=== PATIENT | female | born 1955 | race Caucasian/White ===

== ENCOUNTER 2017-02-21 19:13 | Emergency (ER) | payer OTHER ==
[2017-02-21 19:22] VITALS: BP 139/84; PULSE 96; TEMP 98.5; BMI 33.0
--- NOTE | 2017-02-21 19:28 | PDOC ---
History of Present Illness - General History Source: Patient, Spouse, Old Records Exam Limitations: No Limitations - History of Present Illness Initial Comments: 02/21/17 20:11 The patient is a 61 year old female, with a significant past medical history of hypertension and diabetes, who presents to the emergency department with right third finger pain and swelling for the past couple of days but worsening today. The patient states that the third finger of the right hand has been painful for the past couple of days. However, the patient first noticed that the finger had become swollen today so she decided to come to the ED for evaluation. The patient denies fever or chills. The patient denies any injury or trauma. The patients is at the bedside. PAST MEDICAL HISTORY: See HPI. PAST SURGICAL HISTORY: No significant history. FAMILY HISTORY: No pertinent history. SOCIAL HISTORY: Patient lives with family and is employed. MEDICATIONS: Reviewed. ALLERGIES: As per nursing notes. Adult ROS: General: No fevers or chills, no weakness, no weight loss. HEENT: No change in vision. No sore throat. No ear pain. Cardiovascular: No chest pain or shortness of breath. Respiratory: No cough, or wheezing. Gastrointestinal: No nausea, vomiting, diarrhea or constipation, no rectal bleeding. Genitourinary: No dysuria, hematuria, or frequency. Musculoskeletal: No joint or muscle pain or swelling. No neck pain or back pain. Extremities: +Right 3rd finger pain and swelling. Neurologic: No headache, vertigo, dizziness or loss of consciousness. Psychiatric: No depression. Skin: No rashes or easy bruising. Endocrine: No increased thirst or abnormal weight change. Allergic: No skin or latex allergy. All other systems reviewed and normal. Basic Physical Exam: GENERAL: The patient is awake, alert, and fully oriented, in no acute distress. HEAD: Normal with no signs of trauma. EYES: Pupils equal, round and reactive to light, extraocular movements intact, sclera anicteric, conjunctiva clear. EXTREMITIES: Right third finger in the region of the distal phalanx, there is a large pocket of what appears to be a collection of pus underneath. Tenderness to palpation of the distal phalanx. There is some mild erythema and warmth. There is no extension beyond the distal phalanx to the rest of the finger or hand. Normal range of motion. NEUROLOGICAL: Normal speech, normal gait. PSYCH: Normal mood, normal affect. SKIN: Warm, dry, normal turgor, no rashes or lesions noted. <Carlie Gillette - Last Filed: 02/21/17 20:10> - General History Source: Patient Exam Limitations: No Limitations - History of Present Illness Initial Comments: 02/21/17 20:14 A portion of this note was documented by scribe services under my direction. I have reviewed the details of the note, within reason, and agree with the documentation. The case summary and management plan written by me. Procedure note Incision and drainage of paronychia subungual infection. Finger was anesthetized via digital block with approximately 5 mL of the lidocaine no epinephrine. Paronychia for was incised without any relief of pus from underneath the nailbed. Nailbed was trephinated with a moderate amount of pus through the whole of trephination. I then incised the nail away from the nailbed where the pus was and the removed the rest of the pus from under the nail and cleaned the infection. Bacitracin was applied to the infected area and a Band-Aid wa applied over the bacitracin. Assessment and plan: This is a 61-year-old female with history of uvz-oenkwgy-erttzhuys diabetes who comes in with a large subungual pus collection an infection of her nailbed and paronychia O fold of the nail. Part of the nail was removed to drain the collection and patient was started on Bactrim. Patient will follow-up with her primary care doctor. <Roberta Diaz I - Last Filed: 02/21/17 20:18> - General Chief Complaint: Pain Stated Complaint: RT 3RD FINGER PAIN, SWELLING Time Seen by Provider: 02/21/17 19:18 Past History <Carlie Gillette - Last Filed: 02/21/17 20:10> - Past Medical History Anemia: No Asthma: No Cancer: No Cardiac Disorders: No CVA: No COPD: No CHF: No Dementia: No Diabetes: Yes GI Disorders: Yes (H/O ANAL FISSURE, HIATAL HERNIA) Disorders: No HTN: Yes Hypercholesterolemia: No Kidney Stones: Yes Liver Disease: No Suicide Attempt (Hx): No Seizures: No Thyroid Disease: No - Surgical History Abdominal Surgery: No Appendectomy: No Cardiac Surgery: No Cholecystectomy: No Lung Surgery: No Neurologic Surgery: No Orthopedic Surgery: Yes (TORN RIGHT MENISCUS) - Immunization History Immunization Up to Date: Yes - Psycho/Social/Smoking Cessation Hx Anxiety: No Suicidal Ideation: No Smoking History: Never smoked Have you smoked in the past 12 months: No Information on smoking cessation initiated: No Hx Alcohol Use: No Drug/Substance Use Hx: No Substance Use Type: None Hx Substance Use Treatment: No <Roberta Diaz I - Last Filed: 02/21/17 20:18> - Past Medical History Allergies/Adverse Reactions: Allergies Allergy/AdvReac Type Severity Reaction Status Date / Time No Known Allergies Allergy Verified 02/21/17 19:14 Home Medications: Ambulatory Orders Losartan Potassium [Cozaar] 100 mg PO DAILY 02/08/13 Omeprazole [Prilosec (RX)] 40 mg PO DAILY 10/16/14 Metoprolol Succinate [Toprol XL -] 25 mg PO DAILY 01/21/15 Glipizide/Metformin HCl [Glipizide-Metformin 5-500 mg] 1 each PO DAILY 12/05/15 Ibuprofen [Motrin -] 600 mg PO TID #21 tablet 12/06/15 Sulfamethoxazole/Trimethoprim [Bactrim DS -] 1 tab PO BID #14 tablet 02/21/17 *Physical Exam - Vital Signs Last Vital Signs Temp Pulse Resp BP Pulse Ox 98.5 F 96 H 18 139/84 100 02/21/17 19:15 02/21/17 19:15 02/21/17 19:15 02/21/17 19:15 02/21/17 19:15 <Carlie Gillette - Last Filed: 02/21/17 20:10> - Vital Signs Last Vital Signs Temp Pulse Resp BP Pulse Ox 98.5 F 96 H 18 139/84 100 02/21/17 19:15 02/21/17 19:15 02/21/17 19:15 02/21/17 19:15 02/21/17 19:15 <Roberta Diaz I - Last Filed: 02/21/17 20:18> *DC/Admit/Observation/Transfer - Attestations Scribe Attestion: 02/21/17 19:35 Documentation prepared by Carlie Gillette, acting as medical reimbursement specialist for Roberta Diaz MD. <Carlie Gillette - Last Filed: 02/21/17 20:10> - Discharge Dispostion Admit: No <Roberta Diaz I - Last Filed: 02/21/17 20:18> Diagnosis at time of Disposition: Finger infection - Discharge Dispostion Disposition: HOME Condition at time of disposition: Stable - Prescriptions Prescriptions: Sulfamethoxazole/Trimethoprim [Bactrim DS -] 1 tab PO BID #14 tablet - Referrals Referrals: Ilda Toussaint MD [Primary Care Provider] - - Patient Instructions Additional Instructions: Reapply bacitracin to the area once a day and a Band-Aid. Keep it protected with a Band-Aid until the nailbed has dried sufficiently that is no longer sensitive. Return to the emergency department immediately with ANY new, persistent or worsening symptoms. Continue any medications as previously prescribed by your physician. You should follow up with your primary doctor as soon as possible regarding today's emergency department visit. . Please make sure your doctor reviews the results of your emergency evaluation. Thank you for coming to the Emergency Department today for your care. It was a pleasure to see you today. Please note that your evaluation is INCOMPLETE until you follow-up with your doctor.
[2017-02-21] MEDS ORDERED: SULFAMETHOXAZOLE/TRIMETHOPRIM 800MG/160MG D.S. TABLET PO ONE (20:08)
[2017-02-21] MEDS ORDERED: SULFAMETHOXAZOLE/TRIMETHOPRIM 800MG/160MG D.S. TABLET ONE (20:21)
== END 2017-02-21 20:26 | disposition home or self-care (01) ==
LOC: FER 19:13
DX: L08.9 Local infection of the skin and subcutaneous tissue, unspecified (principal); I10 Essential (primary) hypertension; E11.9 Type 2 diabetes mellitus without complications
CPT/HCPCS: 87070; 87077; 87186; 87205; 99282-25

== ENCOUNTER 2017-12-28 07:23 | Emergency (ER) | payer OTHER ==
[2017-12-28 07:47] VITALS: TEMP 98.6; BMI 31.9
--- NOTE | 2017-12-28 09:09 | PDOC ---
History of Present Illness <Phil Nielson - Last Filed: 12/28/17 09:09> <Sangita Gonzáles - Last Filed: 12/28/17 09:37> - General Chief Complaint: Lightheaded Stated Complaint: DIZZY Time Seen by Provider: 12/28/17 09:09 Past History - Past Medical History Anemia: No Asthma: No Cancer: No Cardiac Disorders: No CVA: No COPD: No CHF: No Dementia: No Diabetes: Yes GI Disorders: Yes (H/O ANAL FISSURE, HIATAL HERNIA) Disorders: No HTN: Yes Hypercholesterolemia: No Kidney Stones: Yes Liver Disease: No Seizures: No Thyroid Disease: No - Surgical History Abdominal Surgery: No Appendectomy: No Cardiac Surgery: No Cholecystectomy: No Lung Surgery: No Neurologic Surgery: No Orthopedic Surgery: Yes (TORN RIGHT MENISCUS) - Immunization History Immunization Up to Date: Yes - Suicide/Smoking/Psychosocial Hx Smoking History: Never smoked Have you smoked in the past 12 months: No Hx Alcohol Use: No Drug/Substance Use Hx: No Substance Use Type: None Hx Substance Use Treatment: No <Phil Nielson - Last Filed: 12/28/17 09:09> <Sangita Gonzáles - Last Filed: 12/28/17 09:37> - Past Medical History Allergies/Adverse Reactions: Allergies Allergy/AdvReac Type Severity Reaction Status Date / Time No Known Allergies Allergy Verified 12/28/17 07:41 Home Medications: Ambulatory Orders Losartan Potassium [Cozaar] 100 mg PO DAILY 02/08/13 Metoprolol Succinate [Toprol XL -] 25 mg PO DAILY 01/21/15 Glipizide/Metformin HCl [Glipizide-Metformin 5-500 mg] 1 each PO BID 12/05/15 *Physical Exam - Vital Signs Last Vital Signs Temp Pulse Resp BP Pulse Ox 98.6 F 102 H 20 119/98 97 12/28/17 07:38 12/28/17 07:38 12/28/17 07:38 12/28/17 07:38 12/28/17 07:38 <Phil Nielson - Last Filed: 12/28/17 09:09> - Vital Signs Last Vital Signs Temp Pulse Resp BP Pulse Ox 98.6 F 102 H 20 119/98 97 12/28/17 07:38 12/28/17 07:38 12/28/17 07:38 12/28/17 07:38 12/28/17 07:38 <Sangita Gonzáles - Last Filed: 12/28/17 09:37> Medical Decision Making - Medical Decision Making 12/28/17 09:37 <Sangita Gonzáles - Last Filed: 12/28/17 09:37> *DC/Admit/Observation/Transfer <Phil Nielson - Last Filed: 12/28/17 09:09> <Sangita Gonzáles - Last Filed: 12/28/17 09:37> - Referrals Referrals: Ilda Toussaint MD [Primary Care Provider] - - Patient Instructions - Post Discharge Activity
--- NOTE | 2017-12-28 09:38 | PDOC ---
History of Present Illness - General History Source: Patient Exam Limitations: No Limitations - History of Present Illness Initial Comments: 12/28/17 10:39 The patient is a 62 year old female, with a significant past medical history of HTN and DM, who presents to the emergency department with diarrhea, nausea, and lightheadedness for about 6 days. The patient reports having multiple episodes of loose stool, since tuesday, with the onset of nausea and malaise. She notes having intermittent chills, subjective fevers and body aches in addition to her diarrhea. She notes her lightheadedness, and weakness has been getting progressively worse since their original onset. History of sepsis about 12 years ago. She denies recent headache, focal weakness or numbness. She denies recent vomit, or constipation. She denies recent dysuria, frequency, urgency or hematuria. She denies recent chest pain or shortness of breath. No recent travel or antibiotics. Allergies: NKA Past surgical history: None reported. Social history: Nonsmoker. Denies EtOH use and recreational drug use. Primary Care Physician: <Eber Peterson - Last Filed: 12/28/17 10:39> <Sangita Gonzáles - Last Filed: 12/28/17 13:46> - General Chief Complaint: Lightheaded Stated Complaint: DIZZY Time Seen by Provider: 12/28/17 09:09 Past History <Eber Peterson - Last Filed: 12/28/17 10:39> - Past Medical History Anemia: No Asthma: No Cancer: No Cardiac Disorders: No CVA: No COPD: No CHF: No Dementia: No Diabetes: Yes GI Disorders: Yes (H/O ANAL FISSURE, HIATAL HERNIA) Disorders: No HTN: Yes Hypercholesterolemia: No Kidney Stones: Yes Liver Disease: No Seizures: No Thyroid Disease: No - Surgical History Abdominal Surgery: No Appendectomy: No Cardiac Surgery: No Cholecystectomy: No Lung Surgery: No Neurologic Surgery: No Orthopedic Surgery: Yes (TORN RIGHT MENISCUS) - Immunization History Immunization Up to Date: Yes - Suicide/Smoking/Psychosocial Hx Smoking History: Never smoked Have you smoked in the past 12 months: No Hx Alcohol Use: No Drug/Substance Use Hx: No Substance Use Type: None Hx Substance Use Treatment: No <Sangita Gonzáles - Last Filed: 12/28/17 13:46> - Past Medical History Allergies/Adverse Reactions: Allergies Allergy/AdvReac Type Severity Reaction Status Date / Time No Known Allergies Allergy Verified 12/28/17 07:41 Home Medications: Ambulatory Orders Losartan Potassium [Cozaar] 100 mg PO DAILY 02/08/13 Metoprolol Succinate [Toprol XL -] 25 mg PO DAILY 01/21/15 Glipizide/Metformin HCl [Glipizide-Metformin 5-500 mg] 1 each PO BID 12/05/15 Review of Systems - Review of Systems Comments:: 12/28/17 10:40 GENERAL/CONSTITUTIONAL: No fever +chills. +weakness. HEAD, EYES, EARS, NOSE AND THROAT: No change in vision. No ear pain or discharge. No sore throat. GASTROINTESTINAL: +diarrhea and nausea No, vomiting, or constipation. GENITOURINARY: No dysuria, frequency, or change in urination. CARDIOVASCULAR: No chest pain or shortness of breath. RESPIRATORY: No cough, wheezing, or hemoptysis. MUSCULOSKELETAL: No joint or muscle swelling or pain. No neck or back pain. SKIN: No rash NEUROLOGIC :+lightheadedness No headache, vertigo, loss of consciousness, or change in strength/sensation. ENDOCRINE: No increased thirst. No abnormal weight change. HEMATOLOGIC/LYMPHATIC: No anemia, easy bleeding, or history of blood clots. ALLERGIC/IMMUNOLOGIC: No hives or skin allergy. <Eber Peterson - Last Filed: 12/28/17 10:39> *Physical Exam - Vital Signs Last Vital Signs Temp Pulse Resp BP Pulse Ox 98.6 F 102 H 20 119/98 97 12/28/17 07:38 12/28/17 07:38 12/28/17 07:38 12/28/17 07:38 12/28/17 07:38 - Physical Exam Comments: 12/28/17 10:40 GENERAL: Awake, alert, and fully oriented, in no acute distress HEAD: No signs of trauma EYES: PERRLA, EOMI, sclera anicteric, conjunctiva clear ENT: Auricles normal inspection, hearing grossly normal, nares patent, oropharynx clear without exudates. Moist mucosa NECK: Normal ROM, supple, no lymphadenopathy, JVD, or masses LUNGS: Breath sounds equal, clear to auscultation bilaterally. No wheezes, and no crackles HEART: Regular rate and rhythm, normal S1 and S2, no murmurs, rubs or gallops ABDOMEN: Soft, nontender, normoactive bowel sounds. No guarding, no rebound. No masses EXTREMITIES: Normal range of motion, no edema. No clubbing or cyanosis. No cords , erythema, or tenderness BACK: No midline spinal tenderness in cervical/thoracic/lumbar region NEUROLOGICAL: Normal speech, cranial nerves intact, negative pronator drift, 5/ 5 strength in all 4 extremities, normal sensation to light touch in all 4 extremities, normal cerebellar exam, normal gait, normal reflexes and tone SKIN: Warm, Dry, normal turgor, no rashes or lesions noted. <Eber Peterson - Last Filed: 12/28/17 10:39> - Vital Signs Last Vital Signs Temp Pulse Resp BP Pulse Ox 98.6 F 102 H 20 119/98 97 12/28/17 07:38 12/28/17 07:38 12/28/17 07:38 12/28/17 07:38 12/28/17 07:38 <Sangita Gonzáles - Last Filed: 12/28/17 13:46> ED Treatment Course - LABORATORY CBC & Chemistry Diagram: 12/28/17 10:30 12/28/17 10:30 <Eber Peterson - Last Filed: 12/28/17 10:39> - LABORATORY CBC & Chemistry Diagram: 12/28/17 10:30 12/28/17 10:30 <Sangita Gonzáles - Last Filed: 12/28/17 13:46> Medical Decision Making - Medical Decision Making 12/28/17 09:35 62-year-old female with a history of [id number] diabetes and hypertension presents emergency Department with 6 days of lightheadedness in the setting of body aches, nausea and multiple episodes of nonbloody diarrhea. Vitals remarkable for mild tachycardia to 102. Exam within normal limits. Differential includes but not limited to dehydration versus ACS versus electrolyte abnormality. Labs, chest x-ray, urinalysis, and a liter fluids have been ordered, will reassess. Laboratory Results - last 24 hr 12/28/17 12/28/17 12/28/17 10:29 10:30 10:30 WBC 17.9 H D RBC 4.36 Hgb 11.5 D Hct 35.6 D MCV 81.7 MCH 26.4 MCHC 32.3 RDW 13.4 Plt Count 403 D MPV 7.1 L Neutrophils % 75.5 Lymphocytes % 17.8 D Monocytes % 5.6 Eosinophils % 0.3 Basophils % 0.8 Sodium 132 L Potassium 4.8 Chloride 99 Carbon Dioxide 23 Anion Gap 10 BUN 26 H Creatinine 1.3 H Creat Clearance w eGFR 41.24 Random Glucose 276 H Lactic Acid Calcium 8.5 Magnesium 1.8 Total Bilirubin 0.8 D AST 8 L ALT 9 L Alkaline Phosphatase 93 Troponin I < 0.02 Total Protein 7.0 Albumin 3.0 L Urine Color Lt. yellow Urine Appearance Clear Urine pH 5.5 Ur Specific Gilbert 1.020 Urine Protein 1+ H Urine Glucose (UA) 1+ H Urine Ketones Trace H Urine Blood 1+ H Urine Nitrite Negative Urine Bilirubin 1+ H Urine Urobilinogen 0.2 Ur Leukocyte Esterase 2+ H 12/28/17 10:30 WBC RBC Hgb Hct MCV MCH MCHC RDW Plt Count MPV Neutrophils % Lymphocytes % Monocytes % Eosinophils % Basophils % Sodium Potassium Chloride Carbon Dioxide Anion Gap BUN Creatinine Creat Clearance w eGFR Random Glucose Lactic Acid 1.9 Calcium Magnesium Total Bilirubin AST ALT Alkaline Phosphatase Troponin I Total Protein Albumin Urine Color Urine Appearance Urine pH Ur Specific Gilbert Urine Protein Urine Glucose (UA) Urine Ketones Urine Blood Urine Nitrite Urine Bilirubin Urine Urobilinogen Ur Leukocyte Esterase 12/28/17 11:31 Pt with leukocytosis to 18, UA concerning for UTI. Pt reports urine was malodorous this morning. 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 12/28/17 13:43 Patient reports dizziness has improved after fluids. Given first dose of Bactrim in the ED for UTI. Patient clinically stable and requests discharge home. Has an appointment with Dr. Hernandez scheduled for Tuesday. I discussed the physical exam findings, ancillary test results and final diagnoses with the patient. I answered all of the patient's questions. The patient was satisfied with the care received and felt comfortable with the discharge plan and treatment plan. The patient will call their primary care physician within 24 hours to arrange follow-up and will return to the Emergency Department with any new, persistent or worsening symptoms. <Nassef,Yomna - Last Filed: 12/28/17 13:46> *DC/Admit/Observation/Transfer - Attestations Scribe Attestion: 12/28/17 10:40 Documentation prepared by Eber Peterson, acting as medical record administrator for Sangita Gonzáles MD. <Eber Peterson - Last Filed: 12/28/17 10:39> - Discharge Dispostion Admit: No - Attestations Physician Attestion: 12/28/17 13:45 I, Dr. Sangita Gonzáles MD, attest that this document has been prepared under my direction and personally reviewed by me in its entirety. I further attest, that it accurately reflects all work, treatment, procedures and medical decision -making performed by me. <Sangita Gonzáles - Last Filed: 12/28/17 13:46> Diagnosis at time of Disposition: UTI (urinary tract infection) - Discharge Dispostion Disposition: HOME Condition at time of disposition: Stable - Referrals Referrals: Ilda Toussaint MD [Primary Care Provider] - - Patient Instructions Printed Discharge Instructions: DI for Urinary Tract Infection (UTI) Additional Instructions: Follow-up with your primary doctor as scheduled this Tuesday. Take your antibiotics as prescribed. Continue to drink plenty of fluids and stay hydrated. It was a pleasure to take care of you in the emergency department today. Return to emergency department if you have any new, worsening or concerning symptoms. - Post Discharge Activity Forms/Work/School Notes: Back to Work
[2017-12-28 10:48] LABS: BASO % 0.8 % (0-2.0); EOS % 0.3 % (0-4.5); HEMATOCRIT 35.6 % (32.4-45.2); HEMOGLOBIN 11.5 GM/dL (10.7-15.3); LYMPH % 17.8 % (8-40); MCH 26.4 pg (25.7-33.7); MCHC 32.3 g/dl (32.0-36.0); MEAN CELL VOLUME 81.7 fl (80-96); MEAN PLT VOLUME 7.1 fl (7.5-11.1); MONO % 5.6 % (3.8-10.2); NEUT % 75.5 % (42.8-82.8); PLATELET COUNT 403 K/MM3 (134-434); RBC 4.36 M/mm3 (3.60-5.2); RDW 13.4 % (11.6-15.6); WHITE BLOOD COUNT 17.9 K/mm3 (4.0-10.0)
[2017-12-28 11:16] LABS: ANION GAP 10 (8-16); BILIRUBIN,TOTAL 0.8 mg/dL (0.2-1.0); BLOOD UREA NITROGEN 26 mg/dL (7-18); CALCIUM 8.5 mg/dL (8.5-10.1); CHLORIDE 99 mmol/L (98-107); CO2 23 mmol/L (21-32); CREATININE 1.3 mg/dL (0.55-1.02); GLUCOSE,RANDOM 276 mg/dL (74-106); MAGNESIUM 1.8 mg/dL (1.8-2.4); POTASSIUM 4.8 mmol/L (3.5-5.1); SGOT/AST 8 U/L (15-37); SGPT/ALT 9 U/L (12-78); SODIUM 132 mmol/L (136-145)
[2017-12-28 11:16] LABS: PH,URINE 5.5 (5.0-8.0); URINE APPEARANCE CLEAR; URINE BILIRUBIN 1+ (NEGATIVE); URINE BLOOD 1+ (NEGATIVE); URINE COLOR LT. YELLOW; URINE GLUCOSE (UA) 1+ (NEGATIVE); URINE KETONE TRACE (NEGATIVE); URINE NITRITE NEGATIVE (NEGATIVE); URINE UROBILINOGEN 0.2 mg/dL (0.2-1.0)
[2017-12-28 11:20] LABS: ALK PHOS 93 U/L (45-117)
[2017-12-28 11:26] LABS: URINE LEUK ESTERASE 2+ (NEGATIVE); URINE PROTEIN 1+ (NEGATIVE)
[2017-12-28] MEDS ORDERED: SODIUM CHLORIDE 0.9% 500 ML INFUS.BAG IV ONE (11:28)
[2017-12-28 11:58] LABS: URINE BACTERIA MANY /hpf (NONE SEEN); URINE HYALINE CAST 1 /lpf
[2017-12-28 11:59] LABS: EPI CELLS MODERATE /HPF (FEW)
[2017-12-28] MEDS ORDERED: SULFAMETHOXAZOLE/TRIMETHOPRIM 800MG/160MG D.S. TABLET PO ONE (12:15)
[2017-12-28] MEDS ORDERED: SULFAMETHOXAZOLE/TRIMETHOPRIM 800MG/160MG D.S. TABLET ONE (12:18)
[2017-12-28 14:01] VITALS: BP 108/68; PULSE 88
--- NOTE | 2017-12-28 16:24 | EKG ---
Test Reason : Blood Pressure : / mmHG Vent. Rate : 091 BPM Atrial Rate : 091 BPM P-R Int : 168 ms QRS Dur : 084 ms QT Int : 376 ms P-R-T Axes : 025 -25 011 degrees QTc Int : 462 ms NORMAL SINUS RHYTHM POSSIBLE LEFT ATRIAL ENLARGEMENT INFERIOR INFARCT (CITED ON OR BEFORE 20-MAY-2010) ANTEROLATERAL INFARCT , AGE UNDETERMINED ABNORMAL ECG WHEN COMPARED WITH ECG OF 11-FEB-2014 13:40, QRS AXIS SHIFTED LEFT ANTEROLATERAL INFARCT IS NOW PRESENT Confirmed by DANILO MCKEON, FARIHA ([id number]) on 12/28/2017 4:24:14 PM Referred By: Confirmed By:FARIHA CARRASCO MD
== END 2017-12-28 14:01 | disposition home or self-care (01) ==
LOC: JER 07:23
DX: N39.0 Urinary tract infection, site not specified (principal); B96.89 Other specified bacterial agents as the cause of diseases classified elsewhere; I10 Essential (primary) hypertension; E11.9 Type 2 diabetes mellitus without complications; Z79.84 Long term (current) use of oral hypoglycemic drugs
CPT/HCPCS: 36415; 71045-TC-FY; 80053; 81003; 81015; 83605; 83735; 84484; 85025; 87086; 87186; 93005; 93010; 99284-25

== ENCOUNTER 2020-07-11 16:01 | Emergency (ER) | payer OTHER ==
[2020-07-11 16:16] VITALS: BP 152/86; PULSE 90; TEMP 98; BMI 30.7
--- NOTE | 2020-07-11 16:49 | PDOC ---
History of Present Illness - General Chief Complaint: Wound Stated Complaint: RIGHT GREAT TOE DARK SPOT Time Seen by Provider: 07/11/20 16:32 History Source: Patient Exam Limitations: No Limitations - History of Present Illness Initial Comments: 07/11/20 16:41 65 yo female sig med hx of HTN and DM presents to the ED immediately after noticing her left great toe tip was dark. pt states she checks her foot 3 times per week due to diabetic neuropathy and concerns for wounds. Pt states she last checked 2 days ago and the black spot was not there. Pt unsure if she stubbed her toe recently due to neuropathy and denies infections or gangrene digits in the past. Pt denies drainage, redness, warmth, pain or swelling from the toe. Denies F/C/N/V, abdominal pain, CP, SOB. Pt reports calling her bpo specialist who is not in clinic today or this weekend. Past History - Medical History Allergies/Adverse Reactions: Allergies Allergy/AdvReac Type Severity Reaction Status Date / Time No Known Allergies Allergy Verified 07/11/20 16:22 Home Medications: Ambulatory Orders Losartan Potassium [Cozaar] 100 mg PO DAILY 02/08/13 Metoprolol Succinate [Toprol XL -] 25 mg PO DAILY 01/21/15 Glipizide/Metformin HCl [Glipizide-Metformin 5-500 mg] 1 each PO BID 12/05/15 Anemia: No Asthma: No Cancer: No Cardiac Disorders: No CVA: No COPD: No CHF: No Dementia: No Diabetes: Yes GI Disorders: Yes (H/O ANAL FISSURE, HIATAL HERNIA) Disorders: No HTN: Yes Hypercholesterolemia: No Kidney Stones: Yes Liver Disease: No Seizures: No Thyroid Disease: No - Surgical History Abdominal Surgery: No Appendectomy: No Cardiac Surgery: No Cholecystectomy: No Lung Surgery: No Neurologic Surgery: No Orthopedic Surgery: Yes (TORN RIGHT MENISCUS) - Immunization History Immunization Up to Date: Yes - Psycho-Social/Smoking History Smoking History: Never smoked Have you smoked in the past 12 months: No Information on smoking cessation initiated: No - Substance Abuse Hx (Audit-C & DAST Scrn) How often the patient has a drink containing alcohol: Never Score: In Men: 4 or > Positive; In Women: 3 or > Positive: 0 Screen Result (Pos requires Nsg. Audit-10AR): Negative In the last yr the pt used illegal drug/Rx for NonMed reason: No Score: Yes response is considered Positive: 0 Screen Result (Positive result requires Nsg. DAST-10): Negative Review of Systems - Review of Systems Constitutional: Yes: Symptoms Reported HEENTM: Yes: Symptoms Reported Respiratory: Yes: Symptoms reported Cardiac (ROS): Yes: Symptoms Reported ABD/GI: Yes: Symptoms Reported : Yes: Symptoms Reported Musculoskeletal: Yes: Symptoms Reported Integumentary: Yes: Symptoms Reported Neurological: Yes: Symptoms reported *Physical Exam - Vital Signs Last Vital Signs Temp Pulse Resp BP Pulse Ox 98 F 90 18 152/86 98 07/11/20 16:03 07/11/20 16:03 07/11/20 16:03 07/11/20 16:03 07/11/20 16:03 - Physical Exam General Appearance: Yes: Nourished, Appropriately Dressed. No: Apparent Distress HEENT: positive: EOMI Respiratory/Chest: positive: Lungs Clear, Normal Breath Sounds Cardiovascular: positive: Regular Rhythm, Regular Rate, S1, S2. negative: Edema, JVD, Murmur Vascular Pulses: Dorsalis-Pedis (R): 4+, Doralis-Pedis (L): 4+ Gastrointestinal/Abdominal: positive: Flat, Soft. negative: Pulsatile Mass, Protuberent, Guarding, Rebound, Tenderness Extremity: positive: Normal Capillary Refill, Normal Range of Motion, Other (dark left great toe without pain, erythema, warmth, drainage). negative: Tender, Delayed Capillary Refill, Pedal Edema, Swelling, Calf Tenderness, Erythema, Inflammation Neurologic: positive: Fully Oriented, Alert, Normal Response, Motor Strength 5/5 Medical Decision Making - Medical Decision Making 07/11/20 16:52 65 yo female sig med hx of HTN and DM presents to the ED immediately after noticing her left great toe tip was dark. pt states she checks her foot 3 times per week due to diabetic neuropathy and concerns for wounds. Pt states she last checked 2 days ago and the black spot was not there. Pt unsure if she stubbed her toe recently due to neuropathy and denies infections or gangrene digits in the past. Pt denies drainage, redness, warmth, pain or swelling from the toe. Denies F/C/N/V, abdominal pain, CP, SOB. Pt reports calling her bpo specialist who is not in clinic today or this weekend. Vitals WNL See PE (no signs of active infection or PAD/decreased blood flow) Pt requires outpatient Podiatry F/U and PCP F/U Precautions for reducing pressure related wounds given to patient Discharge - Discharge Information Problems reviewed: Yes Clinical Impression/Diagnosis: Black toe Condition: Stable Disposition: HOME - Admission No - Follow up/Referral Referrals: Naeem Baez DPM [Staff Physician] - Luis Lacy MD [Staff Physician] - - Patient Discharge Instructions Patient Printed Discharge Instructions: DI for Wound Infection Additional Instructions: Please follow up with your Telephone Solicitor Supervisor or call one of the other Podiatrists for an appointment if you can not get a a hold of yours. Take over the counter pain medication such as tylenol or motrin as needed for pain if you start to develop pain. Return to the ER for new or concerning symptoms such as fevers, warmth, pain or drainage from your toe or surrounding foot. Use the loose dressing at night as shown to you in the ED and wear loose fitting shoes/sandals to prevent further pressure injuries Thank you - Post Discharge Activity
--- NOTE | 2020-07-11 17:12 | PDOC ---
Attending Attestation - Resident Resident Name: JustenJuliano - ED Attending Attestation I have performed the following: I have examined & evaluated the patient, The case was reviewed & discussed with the resident, I agree w/resident's findings & plan, Exceptions are as noted - HPI HPI: 07/11/20 17:07 [id number] with HTN and DM with neuropathy who p/w small area of dark discoloration on left great toe. She cannot trace it back to any trauma or injury. States she checks her feet frequently and is sure this just happened. She follows with a milk route supervisor and will be able to follow up with them after the weekend. She denies any redness, warmth, drainage, pain swelling, streaking redness, f/c/n/v/d/c, abdominal pain, CP, SOB. - Physicial Exam PE: 07/11/20 17:10 GENERAL: well-appearing, pleasant, gregarious, A/Ox4, no distress, answers questions appropriately HEENT: PERRLA, EOMI, moist mucous membranes NECK/BACK: no midline ttp, no spinal step-off or deformity, no hematoma, full ROM, neck supple CARDIOVASCULAR: regular rate/rhythm, no MGR, strong peripheral pulses, capillary refill <2 seconds, extremities wwp, no edema LUNGS/RESPIRATORY: no respiratory distress, CTAB GI/ABDOMEN: symmetric [id number], normoactive BS, soft, no ttp, no midline pulsatile masses : no CVA tenderness MSK/EXTREMITIES: left 1st toe with 1x1cm area of dark discoloration with overlying slightly dry skin, no erythema, warmth, induration, fluctuance, drainage, or open lesion, no tenderness, no streaking erythema, no cracks on skin on foot, no other discoloration, no lipodermatosclerosis, DP pulses 2+ and equal bilaterally, strength intact flexion/extension, 3/5 sensation diffusely on all toes, otherwise MSK exam with no muscle atrophy, no acute deformity SKIN: warm and dry, no pallor, no jaundice, no rash, no pathologic-appearing bruising, no skin breakdown, no cuts, no lesions NEUROLOGICAL: GCS 15, CN II-XII grossly intact, 5/5 strength proximally and distally, no facial droop - Medical Decision Making 07/20/20 23:51 65YOF with h/o DM p/w toe tip discoloration which she states is new over the past day, atraumatic per her recollection. Initial Vital Signs Temp Pulse Resp BP Pulse Ox 98 F 90 18 152/86 98 07/11/20 16:03 07/11/20 16:03 07/11/20 16:03 07/11/20 16:03 07/11/20 16:03 Most likely blister, minor trauma which was not remembered by the patient as she has sensory deficit. Less likely ischemic lesion as there are no other signs of peripheral vascular disease on any other digit on either LE, DP and PT pulses intact. No systemic symptoms. Patient has a milk route supervisor and will be able to f/u with them. No indication for w/u at this time as there are no concerning emergent features to this lesion. Dispo per resident note, return precautions discussed. Discharge - Discharge Information Problems reviewed: Yes Clinical Impression/Diagnosis: Black toe Condition: Stable Disposition: HOME - Admission No - Follow up/Referral Referrals: Luis Lacy MD [Staff Physician] - Naeem Baez DPM [Staff Physician] - - Patient Discharge Instructions Patient Printed Discharge Instructions: DI for Wound Infection Additional Instructions: Please follow up with your Diamond Sawer or call one of the other Podiatrists for an appointment if you can not get a a hold of yours. Take over the counter pain medication such as tylenol or motrin as needed for pain if you start to develop pain. Return to the ER for new or concerning symptoms such as fevers, warmth, pain or drainage from your toe or surrounding foot. Use the loose dressing at night as shown to you in the ED and wear loose fitting shoes/sandals to prevent further pressure injuries Thank you - Post Discharge Activity
== END 2020-07-11 17:12 | disposition home or self-care (01) ==
LOC: FER 16:01
DX: L81.9 Disorder of pigmentation, unspecified (principal)
CPT/HCPCS: 99282-25

== ENCOUNTER 2021-09-23 23:05 | Inpatient (IN) | payer BC, OTHER ==
[2021-09-23 23:18] VITALS: BMI 30.7
[2021-09-23] MEDS ORDERED: ONDANSETRON 4 MG/2 ML VIAL IVPUSH ONE (23:32)
[2021-09-23] MEDS ORDERED: LACTATED RINGERS SOLUTION 1000 ML INFUS.BAG IV ONE (23:32)
[2021-09-23] MEDS ORDERED: morphine CARPU-JECT 2 MG/1 ML DISP.SYRIN IVPUSH ONE (23:32)
[2021-09-23] MEDS ORDERED: FAMOTIDINE 20 MG/50 ML IVPB 20 MG/50 ML MG IVPB ONE (23:32)
[2021-09-24] MEDS ORDERED: ONDANSETRON 4 MG/2 ML VIAL ONE (00:07)
[2021-09-24] MEDS ORDERED: morphine SULFATE 4 MG/ML VIAL ONE (00:07)
[2021-09-24 00:32] LABS: MCH 27.8 pg (25.7-33.7); MCHC 32.5 g/dl (32.0-36.0); MEAN CELL VOLUME 85.6 fl (80-96); MEAN PLT VOLUME 7.1 fl (7.5-11.1); PLATELET COUNT 335 10^3/uL (134-434); RBC 4.32 M/mm3 (3.60-5.2); RDW 13.6 % (11.6-15.6); WHITE BLOOD COUNT 16.9 K/mm3 (4.0-10.0)
[2021-09-24 00:52] LABS: CHLORIDE 105 mmol/L (98-107); SODIUM 136 mmol/L (136-145)
[2021-09-24 00:54] LABS: ALBUMIN 3.4 g/dl (3.4-5.0); ANION GAP 13 MMOL/L (8-16); BLOOD UREA NITROGEN 66.4 mg/dL (7-18); CALCIUM 8.6 mg/dL (8.5-10.1); CO2 17 mmol/L (21-32); GLUCOSE,RANDOM 274 mg/dL (74-106)
[2021-09-24 00:57] LABS: CREATININE 1.6 mg/dL (0.55-1.3); SGOT/AST 31 U/L (15-37); SGPT/ALT 23 U/L (13-61)
[2021-09-24 00:59] LABS: BILIRUBIN,TOTAL 0.6 mg/dL (0.2-1); TOT PROT 7.8 g/dl (6.4-8.2)
[2021-09-24 01:00] LABS: ALK PHOS 80 U/L (45-117)
[2021-09-24] MEDS ORDERED: LACTATED RINGERS SOLUTION 1000 ML INFUS.BAG IV ONE (01:16)
[2021-09-24] MEDS ORDERED: MAGNESIUM SULF 50% (8.12 MEQ/2 ML-1 GM VIAL) IVPB ONE (02:07)
[2021-09-24] MEDS ORDERED: ACETAMINOPHEN INJECTION 100 ML IVPB ONE ×2 (02:57→09:19)
[2021-09-24] MEDS ORDERED: LINEZOLID 600 MG PREMIX BAG 600 MG in PREMIX 300 IVPB SCH (03:00)
[2021-09-24] MEDS ORDERED: ACETAMINOPHEN 1000 MG/100 ML BAG IVPB ONE (03:07)
[2021-09-24 03:12] LABS: INR 0.99 (0.83-1.09); PROTHROMBIN TIME (PATIENT) 11.1 SEC (9.7-13.0)
[2021-09-24] MEDS ORDERED: LINEZOLID 600 MG PREMIX BAG 600 MG/300 ML BAG IVPB SCH (03:15)
[2021-09-24] MEDS ORDERED: PIPERACILLIN/TAZOB 3.375 GM 3.375 GM/50 ML BAG IVPB ONE (03:17)
[2021-09-24] MEDS ORDERED: MAGNESIUM SULF 50% (8.12 MEQ/2 ML-1 GM VIAL) ONE (03:19)
[2021-09-24] MEDS: PIPERACILLIN/TAZOB 3.375 GM 3.375 GM in DEXTROSE 5%-WATER - 50 ML IVPB SCH ×3 (03:33→19:38)
[2021-09-24 04:08] LABS: ANISOCYTOSIS 3+; MACROCYTOSIS 0; OVALOCYTE 1+; PLATELET ESTIMATE NORMAL; TEAR DROP CELLS 1+
[2021-09-24] MEDS ORDERED: NOREPINEPHRINE BITARTRATE 4 MG/4 ML ML IV ONE (06:39)
[2021-09-24] MEDS: NOREPINEPHRINE NS PREMIX 16,000 MCG/500 ML BAG IVPB SCH (06:48)
[2021-09-24] MEDS: SODIUM CHLORIDE 1,000 ML IV SCH ×2 (08:04→22:10)
[2021-09-24] MEDS ORDERED: INSULIN SLIDING SCALE (NOVOLOG) 1 VIAL SQ SCH (11:00)
[2021-09-24 11:41] LABS: HEMATOCRIT 29.3 % (32.4-45.2); HEMOGLOBIN 9.7 GM/dL (10.7-15.3); MCH 28.3 pg (25.7-33.7); MCHC 33.1 g/dl (32.0-36.0); MEAN CELL VOLUME 85.5 fl (80-96); MEAN PLT VOLUME 7.4 fl (7.5-11.1); PLATELET COUNT 323 10^3/uL (134-434); RBC 3.43 M/mm3 (3.60-5.2); RDW 13.4 % (11.6-15.6); WHITE BLOOD COUNT 13.1 K/mm3 (4.0-10.0)
[2021-09-24 11:50] LABS: CALCIUM 7.6 mg/dL (8.5-10.1); MAGNESIUM 1.8 mg/dL (1.8-2.4)
[2021-09-24 11:53] LABS: CREATININE 1.6 mg/dL (0.55-1.3); PHOSPHOROUS 3.3 mg/dL (2.5-4.9)
[2021-09-24 11:55] LABS: BILIRUBIN,TOTAL 0.4 mg/dL (0.2-1); TOT PROT 6.1 g/dl (6.4-8.2)
[2021-09-24] MEDS ORDERED: DEXTROSE 5%-WATER - 50 ML IVPB ONE (11:58)
[2021-09-24] MEDS ORDERED: PIPERACILLIN/TAZOBACTAM 3.375 GM VIAL IVPB ONE (11:58)
[2021-09-24 12:00] LABS: BLOOD UREA NITROGEN 59.6 mg/dL (7-18)
[2021-09-24] MEDS: HYDROmorphone HCl 2 MG/ML VIAL IVPB PRN ×2 (12:08→21:09)
[2021-09-24] MEDS: INSULIN SLIDING SCALE (NOVOLOG) 1 VIAL SQ SCH ×3 (12:12→21:21)
[2021-09-24 12:21] LABS: ALBUMIN 2.7 g/dl (3.4-5.0)
[2021-09-24] MEDS ORDERED: DEXTROSE 5%-WATER 100 ML IVPB ONE (12:35)
[2021-09-24] MEDS: CEFTRIAXONE 2 GM in DEXTROSE 5%-WATER 2 GM/100 ML BAG IVPB SCH (12:39)
[2021-09-24 12:46] LABS: ANISOCYTOSIS 0; HELMET CELLS 0; HOWELL-JOLLY BODIES 0; MACROCYTOSIS 0; OVALOCYTE 0; PLATELET ESTIMATE NORMAL; ROULEAU 0; SICKELED CELLS 0; TARGET CELLS 0; TEAR DROP CELLS 0; TOXIC GRANULATION 0
[2021-09-24] MEDS: MUPIROCIN 2% TOPICAL OINTMENT FOR DECOLONIZATION NS SCH ×2 (13:00→21:11)
[2021-09-24] MEDS: HEPARIN NA (PORCINE) 5,000 UNITS/ML 1ML VIAL SQ SCH ×2 (13:42→21:09)
[2021-09-24] MEDS ORDERED: PT OWN MED DRAWER 7, Y5N ONE (16:44)
[2021-09-24 17:57] LABS: EPI CELLS 6 /uL (0-25.1); HYALINE CASTS 2 /uL (0-3.1); PH,URINE 5.5 (5.0-8.0); URINE APPEARANCE CLEAR; URINE BACTERIA 4 /uL (0-1359); URINE BILIRUBIN NEGATIVE (NEGATIVE); URINE COLOR YELLOW; URINE GLUCOSE (UA) NEGATIVE (NEGATIVE); URINE KETONE NEGATIVE (NEGATIVE); URINE LEUK ESTERASE 1+ (NEGATIVE); URINE NITRITE NEGATIVE (NEGATIVE); URINE PROTEIN 1+ (NEGATIVE); URINE RBC 92 /uL (0-23.9); URINE UROBILINOGEN 0.2 mg/dL (0.2-1.0); URINE WBC 50 /uL (0-25.8)
[2021-09-24] MEDS: CHLORHEXIDINE GLUCONATE 4% CLEANSER FOR DECOLONIZATION TP SCH (21:12)
[2021-09-25] MEDS: HYDROmorphone HCl 2 MG/ML VIAL IVPB PRN (05:15)
[2021-09-25] MEDS: NOREPINEPHRINE NS PREMIX 16,000 MCG/500 ML BAG IVPB SCH (05:38)
[2021-09-25] MEDS: SODIUM CHLORIDE 1,000 ML IV SCH ×2 (05:51→21:49)
[2021-09-25] MEDS: HEPARIN NA (PORCINE) 5,000 UNITS/ML 1ML VIAL SQ SCH ×3 (05:52→21:49)
[2021-09-25] MEDS: INSULIN SLIDING SCALE (NOVOLOG) 1 VIAL SQ SCH ×4 (07:06→21:49)
[2021-09-25 07:16] LABS: HEMATOCRIT 26.2 % (32.4-45.2); HEMOGLOBIN 8.9 GM/dL (10.7-15.3); MCH 29.3 pg (25.7-33.7); MCHC 34.1 g/dl (32.0-36.0); MEAN CELL VOLUME 85.9 fl (80-96); MEAN PLT VOLUME 7.3 fl (7.5-11.1); PLATELET COUNT 264 10^3/uL (134-434); RBC 3.05 M/mm3 (3.60-5.2); RDW 13.2 % (11.6-15.6); WHITE BLOOD COUNT 7.6 K/mm3 (4.0-10.0)
[2021-09-25 07:31] LABS: CHLORIDE 115 mmol/L (98-107); SODIUM 141 mmol/L (136-145)
[2021-09-25 07:35] LABS: ANION GAP 4 MMOL/L (8-16); BLOOD UREA NITROGEN 39.5 mg/dL (7-18); CO2 22 mmol/L (21-32); GLUCOSE,RANDOM 140 mg/dL (74-106); MAGNESIUM 1.5 mg/dL (1.8-2.4)
[2021-09-25 07:38] LABS: CREATININE 1.3 mg/dL (0.55-1.3); PHOSPHOROUS 2.5 mg/dL (2.5-4.9)
[2021-09-25 07:55] LABS: CALCIUM 6.9 mg/dL (8.5-10.1)
[2021-09-25] MEDS ORDERED: VANCOMYCIN/WATER 1,250 MG/250 ML BAG IVPB ONE (08:23)
[2021-09-25] MEDS ORDERED: VANCOMYCIN/WATER BAGS 1,250 MG/250 ML BAG IVPB ONE (08:45)
[2021-09-25] MEDS ORDERED: DEXTROSE 5%-WATER 100 ML IVPB ONE (08:53)
[2021-09-25] MEDS ORDERED: CALCIUM GLUBIONATE 1.8 GM/5 ML SOLUTION PO ONE (08:54)
[2021-09-25] MEDS: MAGNESIUM 1GM/D5W 100ML - 100 ML IVPB IVPB SCH ×2 (08:58→08:59)
[2021-09-25] MEDS: CEFTRIAXONE 2 GM in DEXTROSE 5%-WATER 2 GM/100 ML BAG IVPB SCH (09:14)
[2021-09-25] MEDS: PANTOPRAZOLE 40 MG TABLET PO SCH (09:15)
[2021-09-25 09:22] LABS: ALBUMIN 2.5 g/dl (3.4-5.0)
[2021-09-25] MEDS ORDERED: PT OWN MED DRAWER 7, Y5N ONE (09:35)
[2021-09-25] MEDS ORDERED: HYDROmorphone HCL CARPU-JECT 2 MG/1 ML DISP.SYRIN IVPB PRN (10:24)
[2021-09-25] MEDS ORDERED: HYDROmorphone HCl 2 MG/ML VIAL IVPB PRN ×2 (10:27→10:28)
[2021-09-25] MEDS ORDERED: ACETAMINOPHEN 325 MG TABLET (FP) PO PRN (10:45)
[2021-09-25] MEDS: MUPIROCIN 2% TOPICAL OINTMENT FOR DECOLONIZATION NS SCH ×2 (10:46→21:49)
[2021-09-25] MEDS ORDERED: oxyCODONE HCL 5 MG TABLET ONE (10:48)
[2021-09-25] MEDS ORDERED: ACETAMINOPHEN 325 MG TABLET (FP) ONE (10:50)
[2021-09-25] MEDS ORDERED: VANCOMYCIN 1 GRAM (PRE-DOCKED) 1,000 MG/250 ML BAG IVPB SCH (12:45)
[2021-09-25] MEDS: oxyCODONE HCL 5 MG TABLET PO PRN (17:20)
[2021-09-25] MEDS: CHLORHEXIDINE GLUCONATE 4% CLEANSER FOR DECOLONIZATION TP SCH (21:49)
[2021-09-25] MEDS: VANCOMYCIN 1 GRAM (PRE-DOCKED) 1,000 MG/250 ML BAG IVPB SCH (21:50)
[2021-09-26] MEDS: oxyCODONE HCL 5 MG TABLET PO PRN ×2 (00:33→08:21)
[2021-09-26] MEDS: ACETAMINOPHEN 325 MG TABLET (FP) PO PRN ×2 (00:34→08:21)
[2021-09-26 06:43] LABS: HEMATOCRIT 27.7 % (32.4-45.2); HEMOGLOBIN 9.2 GM/dL (10.7-15.3); MCH 28.1 pg (25.7-33.7); MCHC 33.1 g/dl (32.0-36.0); MEAN CELL VOLUME 84.8 fl (80-96); MEAN PLT VOLUME 6.8 fl (7.5-11.1); PLATELET COUNT 272 10^3/uL (134-434); RBC 3.27 M/mm3 (3.60-5.2); RDW 13.5 % (11.6-15.6)
[2021-09-26] MEDS: INSULIN SLIDING SCALE (NOVOLOG) 1 VIAL SQ SCH ×4 (06:45→21:48)
[2021-09-26] MEDS: HEPARIN NA (PORCINE) 5,000 UNITS/ML 1ML VIAL SQ SCH ×6 (07:05→22:04)
[2021-09-26 07:07] LABS: CALCIUM 7.5 mg/dL (8.5-10.1); MAGNESIUM 1.9 mg/dL (1.8-2.4)
[2021-09-26 07:11] LABS: PHOSPHOROUS 1.8 mg/dL (2.5-4.9)
[2021-09-26] MEDS ORDERED: DEXTROSE 5%-WATER 100 ML IVPB ONE (08:13)
[2021-09-26] MEDS: SODIUM CHLORIDE 1,000 ML IV SCH ×2 (08:22→17:49)
[2021-09-26] MEDS: CEFTRIAXONE 2 GM in DEXTROSE 5%-WATER 2 GM/100 ML BAG IVPB SCH (09:34)
[2021-09-26] MEDS: VANCOMYCIN 1 GRAM (PRE-DOCKED) 1,000 MG/250 ML BAG IVPB SCH ×2 (09:57→21:49)
[2021-09-26] MEDS: PANTOPRAZOLE 40 MG TABLET PO SCH (10:30)
[2021-09-26] MEDS: MUPIROCIN 2% TOPICAL OINTMENT FOR DECOLONIZATION NS SCH (10:30)
[2021-09-26] MEDS ORDERED: MAGNESIUM SULF 50% (8.12 MEQ/2 ML-1 GM VIAL) IVPB ONE (11:08)
[2021-09-26] MEDS ORDERED: INSULIN (NOVOLOG) ASPART 100 UNITS/ML 10ML VIAL ONE (11:59)
[2021-09-26] MEDS: POTASSIUM CHLORIDE TABS 20 MEQ TABLET.ER (FP) PO SCH (12:15)
[2021-09-26] MEDS ORDERED: VANCOMYCIN/WATER 1,250 MG/250 ML BAG IVPB ONE (13:56)
[2021-09-26] MEDS ORDERED: HYDROmorphone HCl 2 MG/ML VIAL IVPB PRN (13:56)
[2021-09-26] MEDS ORDERED: CALCIUM GLUCONATE 10% - 1,000 MG/10 ML VIAL IVPB ONE (13:56)
[2021-09-26] MEDS ORDERED: FLU VACC QS2021-22(6MOS UP)/PF 60 MCG/0.5 ML SYRINGE IM ONE (15:00)
[2021-09-26] MEDS: POLYETHYLENE GLYCOL (HEALTHYLAX) 3350 17 GM PACKET PO ONE ×2 (21:47→22:04)
[2021-09-27] MEDS: oxyCODONE HCL 5 MG TABLET PO PRN (03:00)
[2021-09-27] MEDS: ACETAMINOPHEN 325 MG TABLET (FP) PO PRN (03:01)
[2021-09-27] MEDS: HYDROmorphone HCl 2 MG/ML VIAL IVPB PRN ×3 (05:36→21:42)
[2021-09-27] MEDS: SODIUM CHLORIDE 1,000 ML IV SCH (05:36)
[2021-09-27] MEDS: INSULIN SLIDING SCALE (NOVOLOG) 1 VIAL SQ SCH ×4 (06:28→21:53)
[2021-09-27] MEDS: HEPARIN NA (PORCINE) 5,000 UNITS/ML 1ML VIAL SQ SCH ×3 (06:28→21:46)
[2021-09-27] MEDS ORDERED: NAPH,MB-DB/K PH,MBDB POWDER PACKET PO ONE (09:18)
[2021-09-27] MEDS ORDERED: PT OWN MED DRAWER 7, Y5N ONE (09:51)
[2021-09-27] MEDS ORDERED: DEXTROSE 5%-WATER 100 ML IVPB ONE (09:53)
[2021-09-27] MEDS: POTASSIUM CHLORIDE TABS 20 MEQ TABLET.ER (FP) PO SCH (10:14)
[2021-09-27] MEDS: PANTOPRAZOLE 40 MG TABLET PO SCH (10:14)
[2021-09-27] MEDS: CEFTRIAXONE 2 GM in DEXTROSE 5%-WATER 2 GM/100 ML BAG IVPB SCH (10:14)
[2021-09-27] MEDS ORDERED: SODIUM CHLORIDE NASAL SPRAY 44 ML BOTTLE NS PRN (10:39)
[2021-09-27] MEDS: VANCOMYCIN 1 GRAM (PRE-DOCKED) 1,000 MG/250 ML BAG IVPB SCH ×2 (11:52→22:25)
[2021-09-27 11:56] LABS: BASO % 0.6 % (0-2.0); EOS % 2.1 % (0-4.5); HEMATOCRIT 26.7 % (32.4-45.2); LYMPH % 15.7 % (8-40); MCH 28.4 pg (25.7-33.7); MCHC 33.8 g/dl (32.0-36.0); MEAN CELL VOLUME 84.1 fl (80-96); MEAN PLT VOLUME 6.9 fl (7.5-11.1); MONO % 8.8 % (3.8-10.2); NEUT % 72.8 % (42.8-82.8); PLATELET COUNT 319 10^3/uL (134-434); RBC 3.17 M/mm3 (3.60-5.2); RDW 13.2 % (11.6-15.6); WHITE BLOOD COUNT 8.9 K/mm3 (4.0-10.0)
[2021-09-27 12:24] LABS: BLOOD UREA NITROGEN 13.6 mg/dL (7-18)
[2021-09-27 12:27] LABS: CREATININE 0.9 mg/dL (0.55-1.3); PHOSPHOROUS 2.1 mg/dL (2.5-4.9)
[2021-09-27] MEDS ORDERED: POTASSIUM PHOSPHATE 30 MM in DEXTROSE 5%-WATER - 500 ML IVPB ONE (13:39)
[2021-09-27] MEDS ORDERED: MAGNESIUM OXIDE 400 MG TABLET (FP) PO ONE (13:45)
[2021-09-27] MEDS ORDERED: POTASSIUM PHOSPHATE 30 MM in SODIUM CHLORIDE 500 ML IVPB ONE (14:30)
[2021-09-28] MEDS: oxyCODONE HCL 5 MG TABLET PO PRN ×2 (00:59→20:27)
[2021-09-28] MEDS: INSULIN SLIDING SCALE (NOVOLOG) 1 VIAL SQ SCH ×4 (06:12→22:55)
[2021-09-28] MEDS: HYDROmorphone HCl 2 MG/ML VIAL IVPB PRN ×2 (06:17→21:50)
[2021-09-28 08:48] LABS: EOS % 4.6 % (0-4.5); HEMATOCRIT 27.2 % (32.4-45.2); HEMOGLOBIN 9.2 GM/dL (10.7-15.3); LYMPH % 19.1 % (8-40); MCH 28.1 pg (25.7-33.7); MCHC 33.7 g/dl (32.0-36.0); MEAN CELL VOLUME 83.4 fl (80-96); MEAN PLT VOLUME 6.9 fl (7.5-11.1); MONO % 7.7 % (3.8-10.2); NEUT % 67.6 % (42.8-82.8); PLATELET COUNT 368 10^3/uL (134-434); RBC 3.26 M/mm3 (3.60-5.2); RDW 13.4 % (11.6-15.6); WHITE BLOOD COUNT 8.1 K/mm3 (4.0-10.0)
[2021-09-28 09:15] LABS: ALBUMIN 2.5 g/dl (3.4-5.0); CALCIUM 8.6 mg/dL (8.5-10.1); INR 1.08 (0.83-1.09); PROTHROMBIN TIME (PATIENT) 12.6 SEC (9.7-13.0)
[2021-09-28 09:17] LABS: BLOOD UREA NITROGEN 13.1 mg/dL (7-18); MAGNESIUM 2.1 mg/dL (1.8-2.4)
[2021-09-28 09:18] LABS: ACTIVATED PTT 23.3 SECONDS (25.2-36.5)
[2021-09-28 09:19] LABS: CREATININE 0.8 mg/dL (0.55-1.3); PHOSPHOROUS 2.3 mg/dL (2.5-4.9)
[2021-09-28 09:20] LABS: BILIRUBIN,TOTAL 0.5 mg/dL (0.2-1); TOT PROT 6.3 g/dl (6.4-8.2)
[2021-09-28] MEDS ORDERED: metoPROLOL SUCCINATE 25 MG TAB.SR.24H (FP) PO SCH (10:00)
[2021-09-28] MEDS ORDERED: DEXTROSE 5%-WATER 100 ML IVPB ONE (10:20)
[2021-09-28] MEDS: PANTOPRAZOLE 40 MG TABLET PO SCH (10:27)
[2021-09-28] MEDS: CEFTRIAXONE 2 GM in DEXTROSE 5%-WATER 2 GM/100 ML BAG IVPB SCH (10:27)
[2021-09-28] MEDS: VANCOMYCIN 1 GRAM (PRE-DOCKED) 1,000 MG/250 ML BAG IVPB SCH ×2 (12:08→23:05)
[2021-09-28] MEDS ORDERED: ONDANSETRON 4 MG/2 ML VIAL IVPUSH PRN ×2 (14:46→17:47)
[2021-09-28] MEDS ORDERED: LACTATED RINGERS SOLUTION 1,000 ML IV SCH ×2 (15:00→17:47)
[2021-09-28] MEDS ORDERED: MIDAZOLAM HCL 2 MG/2 ML SINGLE DOSE VIAL ONE ×2 (15:52→16:28)
[2021-09-28] MEDS ORDERED: PROPOFOL 20 ML ONE ×2 (15:53→16:05)
[2021-09-28] MEDS ORDERED: ceFAZolin 2 GRAM PREMIX BAG IVPB ONE (16:18)
[2021-09-28] MEDS ORDERED: HYDROmorphone HCl 2 MG/ML VIAL IVPB PRN (17:47)
[2021-09-28] MEDS ORDERED: SODIUM CHLORIDE NASAL SPRAY 44 ML BOTTLE NS PRN (17:47)
[2021-09-28] MEDS: ACETAMINOPHEN 325 MG TABLET (FP) PO PRN (20:26)
[2021-09-28] MEDS ORDERED: CEFAZOLIN 2 GM in DEXTROSE 5%-WATER - 100 ML IVPB SCH (23:00)
[2021-09-29] MEDS: MELATONIN 5 MG TABLETS PO PRN (03:02)
[2021-09-29] MEDS: ACETAMINOPHEN 325 MG TABLET (FP) PO PRN ×3 (03:09→17:16)
[2021-09-29] MEDS: oxyCODONE HCL 5 MG TABLET PO PRN ×3 (03:10→17:15)
[2021-09-29] MEDS: HYDROmorphone HCl 2 MG/ML VIAL IVPB PRN ×2 (05:19→21:22)
[2021-09-29] MEDS: INSULIN SLIDING SCALE (NOVOLOG) 1 VIAL SQ SCH ×4 (06:39→21:28)
[2021-09-29 08:48] LABS: BASO % 0.6 % (0-2.0); EOS % 1.9 % (0-4.5); HEMATOCRIT 25.9 % (32.4-45.2); HEMOGLOBIN 8.8 GM/dL (10.7-15.3); LYMPH % 12.8 % (8-40); MCH 28.4 pg (25.7-33.7); MEAN CELL VOLUME 83.8 fl (80-96); MONO % 9.1 % (3.8-10.2); NEUT % 75.6 % (42.8-82.8); PLATELET COUNT 387 10^3/uL (134-434); RBC 3.09 M/mm3 (3.60-5.2); WHITE BLOOD COUNT 9.9 K/mm3 (4.0-10.0)
[2021-09-29] MEDS ORDERED: ENOXAPARIN NA (PORCINE) 40 MG/0.4 ML DISP.SYRIN SQ SCH (10:00)
[2021-09-29] MEDS: ENOXAPARIN NA (PORCINE) 40 MG/0.4 ML DISP.SYRIN SQ SCH (10:39)
[2021-09-29] MEDS: VANCOMYCIN 1 GRAM (PRE-DOCKED) 1,000 MG/250 ML BAG IVPB SCH ×2 (10:39→21:31)
[2021-09-29] MEDS: metoPROLOL SUCCINATE 25 MG TAB.SR.24H (FP) PO SCH (10:40)
[2021-09-29] MEDS: PANTOPRAZOLE 40 MG TABLET PO SCH (10:40)
[2021-09-29] MEDS ORDERED: DEXTROSE 5%-WATER - 50 ML IVPB ONE (13:17)
[2021-09-29] MEDS ORDERED: cefTRIAXone SODIUM 1 GM VIAL ONE (13:17)
[2021-09-29] MEDS: CEFTRIAXONE 1 GM in DEXTROSE 5%-WATER - 50 ML IVPB SCH (13:23)
[2021-09-29 19:59] LABS: BLOOD UREA NITROGEN 18.4 mg/dL (7-18); CALCIUM 9.2 mg/dL (8.5-10.1); MAGNESIUM 2.4 mg/dL (1.8-2.4); PHOSPHOROUS 3.1 mg/dL (2.5-4.9)
[2021-09-29 20:07] LABS: BILIRUBIN,TOTAL 0.6 mg/dL (0.2-1); CREATININE 0.9 mg/dL (0.55-1.3); TOT PROT 5.9 g/dl (6.4-8.2)
[2021-09-30] MEDS: oxyCODONE HCL 5 MG TABLET PO PRN ×3 (03:23→21:33)
[2021-09-30] MEDS: ACETAMINOPHEN 325 MG TABLET (FP) PO PRN (03:23)
[2021-09-30] MEDS: INSULIN SLIDING SCALE (NOVOLOG) 1 VIAL SQ SCH ×4 (06:17→21:31)
[2021-09-30] MEDS ORDERED: oxyCODONE HCL 5 MG TABLET PO PRN (08:40)
[2021-09-30 09:23] LABS: BASO % 0.6 % (0-2.0); EOS % 1.9 % (0-4.5); HEMATOCRIT 25.1 % (32.4-45.2); HEMOGLOBIN 8.4 GM/dL (10.7-15.3); LYMPH % 13.2 % (8-40); MCH 27.8 pg (25.7-33.7); MCHC 33.5 g/dl (32.0-36.0); MEAN CELL VOLUME 82.9 fl (80-96); MEAN PLT VOLUME 6.6 fl (7.5-11.1); MONO % 8.3 % (3.8-10.2); PLATELET COUNT 420 10^3/uL (134-434); RBC 3.03 M/mm3 (3.60-5.2); RDW 13.5 % (11.6-15.6)
[2021-09-30] MEDS ORDERED: DEXTROSE 5%-WATER - 50 ML IVPB ONE (09:25)
[2021-09-30] MEDS ORDERED: cefTRIAXone SODIUM 1 GM VIAL ONE (09:25)
[2021-09-30] MEDS: PANTOPRAZOLE 40 MG TABLET PO SCH (09:27)
[2021-09-30] MEDS: CEFTRIAXONE 1 GM in DEXTROSE 5%-WATER - 50 ML IVPB SCH (09:29)
[2021-09-30] MEDS: metoPROLOL SUCCINATE 25 MG TAB.SR.24H (FP) PO SCH (09:29)
[2021-09-30] MEDS: ENOXAPARIN NA (PORCINE) 40 MG/0.4 ML DISP.SYRIN SQ SCH (10:22)
[2021-09-30] MEDS: VANCOMYCIN 1 GRAM (PRE-DOCKED) 1,000 MG/250 ML BAG IVPB SCH (10:27)
[2021-09-30 12:01] LABS: CALCIUM 8.6 mg/dL (8.5-10.1); CREATININE 0.9 mg/dL (0.55-1.3)
[2021-09-30 14:35] LABS: EPI CELLS 4 /uL (0-25.1); HYALINE CASTS 2 /uL (0-3.1); PH,URINE 5.5 (5.0-8.0); URINE APPEARANCE CLEAR; URINE BACTERIA 11 /uL (0-1359); URINE BILIRUBIN NEGATIVE (NEGATIVE); URINE COLOR YELLOW; URINE GLUCOSE (UA) 1+ (NEGATIVE); URINE KETONE TRACE (NEGATIVE); URINE LEUK ESTERASE NEGATIVE (NEGATIVE); URINE NITRITE NEGATIVE (NEGATIVE); URINE PROTEIN 2+ (NEGATIVE); URINE UROBILINOGEN 0.2 mg/dL (0.2-1.0); URINE WBC 9 /uL (0-25.8)
[2021-09-30 15:17] LABS: URINE RBC 31.6 /uL (0-23.9)
[2021-09-30] MEDS: MELATONIN 5 MG TABLETS PO PRN (21:33)
[2021-10-01] MEDS: VANCOMYCIN 1 GRAM (PRE-DOCKED) 1,000 MG/250 ML BAG IVPB SCH ×2 (00:06→09:53)
[2021-10-01] MEDS: oxyCODONE HCL 5 MG TABLET PO PRN ×4 (01:12→22:53)
[2021-10-01] MEDS: INSULIN SLIDING SCALE (NOVOLOG) 1 VIAL SQ SCH ×4 (06:18→22:03)
[2021-10-01 09:42] LABS: BASO % 0.9 % (0-2.0); EOS % 1.9 % (0-4.5); HEMATOCRIT 25.9 % (32.4-45.2); HEMOGLOBIN 8.5 GM/dL (10.7-15.3); LYMPH % 16.2 % (8-40); MCH 27.5 pg (25.7-33.7); MCHC 32.7 g/dl (32.0-36.0); MEAN CELL VOLUME 84.1 fl (80-96); MEAN PLT VOLUME 6.8 fl (7.5-11.1); MONO % 8.3 % (3.8-10.2); NEUT % 72.7 % (42.8-82.8); PLATELET COUNT 478 10^3/uL (134-434); RBC 3.08 M/mm3 (3.60-5.2); RDW 13.2 % (11.6-15.6); WHITE BLOOD COUNT 11.3 K/mm3 (4.0-10.0)
[2021-10-01] MEDS ORDERED: cefTRIAXone SODIUM 1 GM VIAL ONE ×3 (09:48→11:07)
[2021-10-01] MEDS ORDERED: DEXTROSE 5%-WATER - 50 ML IVPB ONE ×3 (09:48→11:07)
[2021-10-01] MEDS ORDERED: PT OWN MED DRAWER 7, Y5N ONE ×2 (09:52→12:44)
[2021-10-01] MEDS: CEFTRIAXONE 1 GM in DEXTROSE 5%-WATER - 50 ML IVPB SCH ×2 (09:53→11:22)
[2021-10-01] MEDS: metoPROLOL SUCCINATE 25 MG TAB.SR.24H (FP) PO SCH (10:04)
[2021-10-01] MEDS: ENOXAPARIN NA (PORCINE) 40 MG/0.4 ML DISP.SYRIN SQ SCH (10:04)
[2021-10-01] MEDS: PANTOPRAZOLE 40 MG TABLET PO SCH (10:04)
[2021-10-01 10:39] LABS: CREATININE 1.1 mg/dL (0.55-1.3)
[2021-10-01 10:40] LABS: CALCIUM 8.5 mg/dL (8.5-10.1)
[2021-10-01] MEDS: ACETAMINOPHEN 325 MG TABLET (FP) PO PRN ×2 (11:25→18:13)
[2021-10-01 12:19] LABS: BLOOD UREA NITROGEN 12.2 mg/dL (7-18)
[2021-10-01] MEDS: ZINC OXIDE/PANTHENOL/VITAMIN E 56 GM TUBE TP SCH (14:56)
[2021-10-01] MEDS ORDERED: FLU VACC QS2021-22(6MOS UP)/PF 60 MCG/0.5 ML SYRINGE IM ONE (18:30)
[2021-10-02] MEDS: oxyCODONE HCL 5 MG TABLET PO PRN ×3 (06:37→21:23)
[2021-10-02] MEDS: INSULIN SLIDING SCALE (NOVOLOG) 1 VIAL SQ SCH ×4 (06:39→21:24)
[2021-10-02 09:11] LABS: BASO % 0.9 % (0-2.0); EOS % 4.4 % (0-4.5); HEMATOCRIT 24.7 % (32.4-45.2); HEMOGLOBIN 8.2 GM/dL (10.7-15.3); LYMPH % 18.1 % (8-40); MCH 27.4 pg (25.7-33.7); MCHC 33.2 g/dl (32.0-36.0); MEAN CELL VOLUME 82.6 fl (80-96); MEAN PLT VOLUME 6.5 fl (7.5-11.1); MONO % 8.2 % (3.8-10.2); NEUT % 68.4 % (42.8-82.8); PLATELET COUNT 524 10^3/uL (134-434); RBC 2.99 M/mm3 (3.60-5.2); RDW 13.3 % (11.6-15.6); WHITE BLOOD COUNT 9.7 K/mm3 (4.0-10.0)
[2021-10-02] MEDS: metoPROLOL SUCCINATE 25 MG TAB.SR.24H (FP) PO SCH (09:31)
[2021-10-02] MEDS: PANTOPRAZOLE 40 MG TABLET PO SCH (09:31)
[2021-10-02] MEDS: ZINC OXIDE/PANTHENOL/VITAMIN E 56 GM TUBE TP SCH (09:32)
[2021-10-02] MEDS: ENOXAPARIN NA (PORCINE) 40 MG/0.4 ML DISP.SYRIN SQ SCH (09:33)
[2021-10-02] MEDS: CEFTRIAXONE 1 GM in DEXTROSE 5%-WATER - 50 ML IVPB SCH (09:33)
[2021-10-02 12:59] LABS: BLOOD UREA NITROGEN 14.9 mg/dL (7-18); CALCIUM 8.7 mg/dL (8.5-10.1); CREATININE 1.1 mg/dL (0.55-1.3)
[2021-10-02] MEDS: AMINO ACIDS/PROTEIN HYDROLYS 30 ML LIQUID.PKT PO SCH (17:29)
[2021-10-02] MEDS: POLYETHYLENE GLYCOL (HEALTHYLAX) 3350 17 GM PACKET PO SCH ×2 (17:29→17:55)
[2021-10-02] MEDS ORDERED: PT OWN MED DRAWER 7, Y5N ONE (21:15)
[2021-10-02] MEDS: MELATONIN 5 MG TABLETS PO PRN (21:23)
[2021-10-02] MEDS: SENNOSIDES/DOCUSATE COMBO (SENNA PLUS) TABLET (UD) PO SCH (21:23)
[2021-10-03] MEDS: oxyCODONE HCL 5 MG TABLET PO PRN (04:38)
[2021-10-03] MEDS: INSULIN SLIDING SCALE (NOVOLOG) 1 VIAL SQ SCH ×3 (06:46→17:55)
[2021-10-03 08:45] LABS: BASO % 1.2 % (0-2.0); EOS % 4.4 % (0-4.5); HEMATOCRIT 23.5 % (32.4-45.2); HEMOGLOBIN 7.8 GM/dL (10.7-15.3); LYMPH % 19.7 % (8-40); MCH 27.7 pg (25.7-33.7); MCHC 33.3 g/dl (32.0-36.0); MEAN CELL VOLUME 83.1 fl (80-96); MEAN PLT VOLUME 6.3 fl (7.5-11.1); MONO % 9.5 % (3.8-10.2); NEUT % 65.2 % (42.8-82.8); PLATELET COUNT 520 10^3/uL (134-434); RBC 2.83 M/mm3 (3.60-5.2); RDW 13.5 % (11.6-15.6); WHITE BLOOD COUNT 9.2 K/mm3 (4.0-10.0)
[2021-10-03] MEDS ORDERED: PT OWN MED DRAWER 7, Y5N ONE (09:10)
[2021-10-03 09:23] LABS: CALCIUM 8.6 mg/dL (8.5-10.1)
[2021-10-03 09:27] LABS: CREATININE 1.1 mg/dL (0.55-1.3)
[2021-10-03] MEDS: AMOX TR/POT CLAV 875MG/125MG TABLETS (FP) PO SCH ×2 (09:37→17:53)
[2021-10-03] MEDS: PANTOPRAZOLE 40 MG TABLET PO SCH (09:37)
[2021-10-03] MEDS: metoPROLOL SUCCINATE 25 MG TAB.SR.24H (FP) PO SCH (09:37)
[2021-10-03] MEDS: AMINO ACIDS/PROTEIN HYDROLYS 30 ML LIQUID.PKT PO SCH ×2 (09:37→18:33)
[2021-10-03] MEDS: POLYETHYLENE GLYCOL (HEALTHYLAX) 3350 17 GM PACKET PO SCH (09:38)
[2021-10-03] MEDS: ZINC OXIDE/PANTHENOL/VITAMIN E 56 GM TUBE TP SCH (09:38)
[2021-10-03] MEDS: SENNOSIDES/DOCUSATE COMBO (SENNA PLUS) TABLET (UD) PO SCH (09:39)
[2021-10-03] MEDS ORDERED: ASCORBIC ACID 250 MG TABLET (FP) PO SCH (10:00)
[2021-10-03] MEDS ORDERED: MULTIVIT-MINERALS ORAL LIQUID PO SCH (10:00)
[2021-10-03] MEDS ORDERED: oxyCODONE HCL 5 MG TABLET PO PRN (12:48)
[2021-10-03 13:37] VITALS: BP 123/62; PULSE 81; TEMP 98.7
[2021-10-03 16:20] LABS: HEMATOCRIT 24.5 % (32.4-45.2); HEMOGLOBIN 8.2 GM/dL (10.7-15.3); MCH 27.7 pg (25.7-33.7); MCHC 33.5 g/dl (32.0-36.0); MEAN CELL VOLUME 82.7 fl (80-96); MEAN PLT VOLUME 6.3 fl (7.5-11.1); PLATELET COUNT 570 10^3/uL (134-434); RBC 2.96 M/mm3 (3.60-5.2); RDW 13.4 % (11.6-15.6); WHITE BLOOD COUNT 9.9 K/mm3 (4.0-10.0)
== END 2021-10-03 19:31 | disposition home health service (06) | DRG 853 ==
LOC: JER 23:05 → JERBED 09-24 01:59 → JICU 09-24 10:03 → J5S 09-26 13:58
PROVIDERS: ADMIT Internal Medicine; ATTEND Internal Medicine
PROC: 05HM33Z Insertion of Infusion Device into Right Internal Jugular Vein, Percutaneous Approach (ICD-10-PCS; 2021-09-24)
PROC: B543ZZA Ultrasonography of Right Jugular Veins, Guidance (ICD-10-PCS; 2021-09-24)
PROC: 0QH606Z Insertion of Intramedullary Internal Fixation Device into Right Upper Femur, Open Approach (ICD-10-PCS; principal; 2021-09-28 13:00)
DX: A41.9 Sepsis, unspecified organism (principal); S72.141A Displaced intertrochanteric fracture of right femur, initial encounter for closed fracture; R65.21 Severe sepsis with septic shock; N17.9 Acute kidney failure, unspecified; N39.0 Urinary tract infection, site not specified; D62 Acute posthemorrhagic anemia; E11.40 Type 2 diabetes mellitus with diabetic neuropathy, unspecified; I10 Essential (primary) hypertension; Z79.84 Long term (current) use of oral hypoglycemic drugs; W19.XXXA Unspecified fall, initial encounter; Y93.89 Activity, other specified; Y92.009 Unspecified place in unspecified non-institutional (private) residence as the place of occurrence of the external cause; Y99.8 Other external cause status; K52.9 Noninfective gastroenteritis and colitis, unspecified; E11.65 Type 2 diabetes mellitus with hyperglycemia; E66.9 Obesity, unspecified; Z68.30 Body mass index [BMI] 30.0-30.9, adult; R94.31 Abnormal electrocardiogram [ECG] [EKG]; E86.0 Dehydration; B96.20 Unspecified Escherichia coli [E. coli] as the cause of diseases classified elsewhere; F41.9 Anxiety disorder, unspecified
CPT/HCPCS: 36415; 71045-TC-FY; 72170-TC-FY; 73502-TC-LT-FY; 73502-TC-RT-FY; 73552-TC-RT-FY; 74176-TC; 76000-TC-FY; 80048; 80053; 81003; 82040; 82962; 83036; 83735; 84100; 84484; 85025; 85027; 85610; 85730; 86850; 86900; 86901; 87040; 87086; 87186; 90686; 93005; 93010; 93306-TC; 93970-TC; 94010; 94760; 97116-GP; 97162-GP; 99285-25; C9803; G0008; G0480; J0131; J1644; U0003; U0005

== ENCOUNTER 2023-09-23 18:14 | Emergency (ER) | payer BC, OTHER ==
[2023-09-23] MEDS ORDERED: CLINDAMYCIN HCL 150 MG CAPSULE (FP) PO ONE (19:01)
[2023-09-23] MEDS ORDERED: CLINDAMYCIN HCL 150 MG CAPSULE (FP) ONE (19:08)
[2023-09-23 19:32] VITALS: BP 162/54; PULSE 89; RESP 18; TEMP 98.2; BMI 30.7
== END 2023-09-23 19:15 | disposition home or self-care (01) ==
LOC: FER 18:14
DX: E11.621 Type 2 diabetes mellitus with foot ulcer (principal); E11.42 Type 2 diabetes mellitus with diabetic polyneuropathy; L97.519 Non-pressure chronic ulcer of other part of right foot with unspecified severity
CPT/HCPCS: 99283-25

== ENCOUNTER 2024-07-08 17:03 | Emergency (ER) | payer BC, OTHER ==
[2024-07-08] MEDS ORDERED: ALBUTEROL SO4 0.083% IH SOL 2.5 MG/3 ML VIAL.NEB. NEB ONE (17:48)
[2024-07-08] MEDS ORDERED: guaiFENesin/D-METHORPHAN HB 10 ML UNIT-DOSE CUPS ONE (17:48)
[2024-07-08] MEDS: guaiFENesin/CODEINE 10 ML UNIT-DOSE CUPS PO ONE (17:56)
[2024-07-08] MEDS: ALBUTEROL SO4 0.083% IH SOL 2.5 MG/3 ML VIAL.NEB. NEB ONE (17:56)
[2024-07-08 18:04] VITALS: BP 170/80; PULSE 86; RESP 18; TEMP 98; BMI 28.7
== END 2024-07-08 19:14 | disposition home or self-care (01) ==
LOC: FER 17:03
PROC: 3E0F7GC Introduction of Other Therapeutic Substance into Respiratory Tract, Via Natural or Artificial Opening (ICD-10-PCS; principal; 2024-07-08)
DX: R50.9 Fever, unspecified (principal); R05.9 Cough, unspecified; R09.81 Nasal congestion; R53.83 Other fatigue; J06.9 Acute upper respiratory infection, unspecified; U07.1 COVID-19
CPT/HCPCS: 0241U-QW; 71045-TC-FY; 93005; 99285-25